=== PATIENT | male | born 1980 ===

== ENCOUNTER 2018-07-19 00:48 | Emergency (ER) | payer OTHER ==
[2018-07-19 00:53] VITALS: TEMP 97.8
[2018-07-19 01:21] VITALS: BP 144/66; PULSE 74; RESP 74; O2SAT 99
== END 2018-07-19 01:08 | disposition home or self-care (01) ==
LOC: ED 00:48
DX: T78.1XXA Other adverse food reactions, not elsewhere classified, initial encounter (principal); L29.9 Pruritus, unspecified
CPT/HCPCS: 99282

== ENCOUNTER 2018-11-23 03:40 | Emergency (ER) | payer BC, OTHER ==
[2018-11-23 03:51] VITALS: RESP 20; TEMP 96.5
[2018-11-23] MEDS ORDERED: KETOROLAC TROMETHAMINE 30 MG/ML SOL IV ONE (04:02)
[2018-11-23] MEDS ORDERED: ONDANSETRON HCL 4 MG/2 ML SOL IV ONE (04:02)
[2018-11-23] MEDS ORDERED: LORAZEPAM 2 MG/ML SOL IV ONE (04:05)
[2018-11-23] MEDS ORDERED: ONDANSETRON HCL 4 MG/2 ML SOL ONE (04:06)
[2018-11-23] MEDS ORDERED: KETOROLAC TROMETHAMINE 30 MG/ML SOL ONE (04:06)
[2018-11-23] MEDS ORDERED: LORAZEPAM 2 MG/ML SOL ONE (04:07)
[2018-11-23] MEDS ORDERED: SODIUM CHLORIDE 0.9% FLUSH 10 ML SOL IV PRN (04:24)
[2018-11-23] MEDS ORDERED: OLANZAPINE 2.5 MG TAB ONE (04:29)
[2018-11-23 05:07] VITALS: BP 132/82; PULSE 84; O2SAT 98
[2018-11-23] MEDS ORDERED: OLANZAPINE 2.5 MG TAB PO SCH (09:00)
== END 2018-11-23 04:55 | disposition home or self-care (01) ==
LOC: ED 03:40
DX: F15.10 Other stimulant abuse, uncomplicated (principal); M54.5 Low back pain
CPT/HCPCS: 96374; 96375; 99282; 99284; J1885; J2060; J2405; A9270-GY